=== PATIENT | female | born 1995 | race Two or more races ===

== ENCOUNTER 2023-09-19 21:54 | Emergency (ER) | payer SELFPAY ==
[~2023-09-19] VITALS: Ht 157.5 cm; Wt 63.5 kg
[2023-09-20 05:02] VITALS: BP 100/62; TEMP 97.8; O2SAT 100
== END 2023-09-20 05:44 | disposition left against medical advice (07) ==
LOC: M ED 21:54
DX: Z53.21 Procedure and treatment not carried out due to patient leaving prior to being seen by health care provider (principal)

== ENCOUNTER → 2023-10-07 | Outpatient (CLI) | payer OTHER ==
[2023-10-07 14:02] LABS: HEMATOCRIT 36.4 % (36.0-47.0); HEMOGLOBIN 12.5 g/dl (12.0-15.5); MEAN CORPUSCULAR HEMOGLOBIN 29.4 pg (27.0-33.0); MEAN CORPUSCULAR HGB CONC 34.3 g/dl (32.0-36.5); MEAN CORPUSCULAR VOLUME 85.6 fl (80.0-96.0); PLATELET COUNT, AUTOMATED 227 10^3/uL (150-450); RED BLOOD COUNT 4.25 10^6/uL (4.00-5.40); WHITE BLOOD COUNT 11.9 10^3/uL (4.0-10.0)
[2023-10-07 15:06] LABS: HIV 1&2 SCREEN NEGATIVE (NEGATIVE)
[2023-10-07 15:14] LABS: HEPATITIS C VIRUS ABY INDEX 0.05 INDEX (<0.8)
[2023-10-07 15:16] LABS: GC DNA AMPLIFICATION NEGATIVE (NEGATIVE)
== END ==
LOC: M PLALAB 10:58
PROVIDERS: ATTEND Nurse Practitioner Women's Health
DX: Z34.82 Encounter for supervision of other normal pregnancy, second trimester (principal); Z3A.16 16 weeks gestation of pregnancy

== ENCOUNTER → 2023-10-15 | Outpatient (CLI) | payer OTHER | LOC: M RAD 15:53 | PROVIDERS: ATTEND Nurse Practitioner Women's Health | DX: Z36.2 Encounter for other antenatal screening follow-up (principal); Z3A.00 Weeks of gestation of pregnancy not specified ==

== ENCOUNTER → 2023-12-23 | Outpatient (CLI) | payer OTHER ==
[2023-12-23 15:29] LABS: HEMATOCRIT 35.3 % (36.0-47.0); HEMOGLOBIN 11.8 g/dl (12.0-15.5); MEAN CORPUSCULAR HEMOGLOBIN 27.8 pg (27.0-33.0); MEAN CORPUSCULAR HGB CONC 33.4 g/dl (32.0-36.5); MEAN CORPUSCULAR VOLUME 83.1 fl (80.0-96.0); PLATELET COUNT, AUTOMATED 268 10^3/uL (150-450); RED BLOOD COUNT 4.25 10^6/uL (4.00-5.40); WHITE BLOOD COUNT 14.1 10^3/uL (4.0-10.0)
[2023-12-23 15:43] LABS: GLUCOSE CHALLENGE TEST 1 HOUR 126 MG/DL (LESS THAN 140)
[2023-12-23 16:22] LABS: HEPATITIS C VIRUS ABY INDEX < 0.02 INDEX (<0.8)
== END ==
LOC: M PLALAB 13:25
PROVIDERS: ATTEND Advanced Practice Midwife
DX: Z34.82 Encounter for supervision of other normal pregnancy, second trimester (principal)

== ENCOUNTER → 2024-01-20 | Outpatient (REF) | payer OTHER | LOC: M PLALAB 15:38 | PROVIDERS: ATTEND Obstetrics & Gynecology | DX: Z34.93 Encounter for supervision of normal pregnancy, unspecified, third trimester (principal); Z3A.36 36 weeks gestation of pregnancy ==

== ENCOUNTER 2024-02-12 02:55 | Inpatient (IN) | payer OTHER ==
[2024-02-12] VITALS (7 sets, daily range): BP systolic 107–126; BP diastolic 60–75; O2SAT 99–100
[2024-02-12] MEDS ORDERED: OXYTOCIN INJ 10UNITS/ML 1ML VIAL As Ordered ONE (03:09)
[2024-02-12] MEDS ORDERED: LIDOCAINE 1% MDV 20ML VIAL As Ordered ONE (03:19)
[2024-02-12] MEDS: LIDOCAINE 1% MDV 20ML VIAL SC ONE (03:31)
[2024-02-12] MEDS: OXYTOCIN INJ 10UNITS/ML 1ML VIAL IM ONE (03:31)
[2024-02-12] MEDS: METHYLERGONOVINE MALEATE 0.2MG/ML 1ML VIAL IM ONE (03:50)
[2024-02-12] MEDS ORDERED: IBUPROFEN 800 MG TAB PO PRN (04:20)
[2024-02-12] MEDS ORDERED: ACETAMINOPHEN 325 MG TAB PO PRN (04:20)
[2024-02-12] MEDS ORDERED: METHYLERGONOVINE MALEATE 0.2 MG TAB PO PRN (04:20)
[2024-02-12] MEDS ORDERED: IBUPROFEN 600MG TAB PO PRN (04:20)
[2024-02-12] MEDS: ACETAMINOPHEN 500 MG TAB PO PRN (04:37)
[2024-02-12 04:54] LABS: HEMATOCRIT 40.6 % (36.0-47.0); HEMOGLOBIN 13.6 g/dl (12.0-15.5); MEAN CORPUSCULAR HEMOGLOBIN 26.8 pg (27.0-33.0); MEAN CORPUSCULAR HGB CONC 33.5 g/dl (32.0-36.5); MEAN CORPUSCULAR VOLUME 80.1 fl (80.0-96.0); PLATELET COUNT, AUTOMATED 243 10^3/uL (150-450); RED BLOOD COUNT 5.07 10^6/uL (4.00-5.40); WHITE BLOOD COUNT 12.5 10^3/uL (4.0-10.0)
[2024-02-12] MEDS: DIBUCAINE 1% OINTMENT 30GM TOP PRN (05:44)
[2024-02-12 05:57] LABS: HEPATITIS C VIRUS ABY INDEX < 0.02 INDEX (<0.8)
[2024-02-12] MEDS: RHOGAM 300MCG (1500IU) INJ IM SCH (07:32)
[2024-02-12] MEDS: PRENATAL VITAMINS CHEWABLE TABLET PO SCH (08:20)
[2024-02-12] MEDS: DOCUSATE SODIUM 100MG CAPSULE PO PRN (21:06)
[2024-02-13 06:00] VITALS: BP 105/64; O2SAT 98
[2024-02-14] MEDS ORDERED: MEASLES,MUMPS,RUBELLA VACCINE INJ (MMR-II) SC.IMMUN ONE (09:00)
== END 2024-02-13 17:45 | disposition home or self-care (01) | DRG 807 ==
LOC: M LDO 02:55 → M LDI 03:04 → M OBS 05:00
PROVIDERS: ADMIT Advanced Practice Midwife; ATTEND Advanced Practice Midwife
PROC: 10E0XZZ Delivery of Products of Conception, External Approach (ICD-10-PCS; principal; 2024-02-12)
PROC: 10907ZC Drainage of Amniotic Fluid, Therapeutic from Products of Conception, Via Natural or Artificial Opening (ICD-10-PCS; 2024-02-12)
PROC: 0HQ9XZZ Repair Perineum Skin, External Approach (ICD-10-PCS; 2024-02-12)
DX: O70.0 First degree perineal laceration during delivery (principal); Z37.0 Single live birth; Z3A.39 39 weeks gestation of pregnancy

== ENCOUNTER 2024-08-30 22:14 | Emergency (ER) | payer OTHER ==
[~2024-08-30] VITALS: Ht 160 cm; Wt 68.0 kg
[2024-08-31 10:34] LABS: BASO # 0.1 10^3/uL (0.0-0.2); BASO % 1.6 % (0.0-1.0); EOS # 0.2 10^3/uL (0.0-0.5); EOS % 3.6 % (0.0-3.0); LYMPH # 1.7 10^3/uL (1.5-5.0); LYMPH % 30.0 % (24.0-44.0); MONO # 0.4 10^3/uL (0.0-0.8); MONO % 7.6 % (2.0-8.0); NEUTROPHILS # 3.2 10^3/uL (1.5-8.5); NEUTROPHILS % 57.0 % (36.0-66.0); PLATELET COUNT, AUTOMATED 266 10^3/uL (150-450)
[2024-08-31] MEDS ORDERED: ISOVUE-370 76% 100 ML VIAL As Ordered ONE (10:51)
[2024-08-31 11:12] LABS: CK-MB VALUE MASS < 1.0 NG/ML (<3.6)
[2024-08-31 11:13] LABS: ALT/SGPT 13.0 U/L (7.0-40); AST/SGOT 23.0 U/L (<34); CPK CREATINE PHOSPHOKINASE 76 U/L (34-145)
[2024-08-31] MEDS ORDERED: OMEP40CA4 PO (12:13)
[2024-08-31] MEDS ORDERED: SUCR1TA PO (12:13)
[2024-08-31 12:19] VITALS: BP 97/63; TEMP 97.9; O2SAT 100
== END 2024-08-31 12:20 | disposition home or self-care (01) ==
LOC: M ED 22:14
DX: K29.70 Gastritis, unspecified, without bleeding (principal)
CPT/HCPCS: 71046; 71275; 74177; 80047; 80076; 82550; 82553; 83690; 84484; 84702; 85025; 93005; 99284; Q9967